=== PATIENT | female | born 2000 | race Caucasian/White ===

== ENCOUNTER 2020-08-24 13:46 | Emergency (ER) | payer OTHER ==
[2020-08-24 14:01] VITALS: BP 124/79; PULSE 96; TEMP 99.4; BMI 21.0
[2020-08-24] MEDS ORDERED: LIDOCAINE 5% TOPICAL PATCH TP ONE (14:19)
[2020-08-24] MEDS ORDERED: LIDOCAINE 5% TOPICAL PATCH ONE (14:35)
[2020-08-24] MEDS ORDERED: LIDOCAINE PATCH REMOVAL MC SCH (22:00)
== END 2020-08-24 14:59 | disposition home or self-care (01) ==
LOC: FER 13:46
DX: S13.4XXA Sprain of ligaments of cervical spine, initial encounter (principal); G44.209 Tension-type headache, unspecified, not intractable
CPT/HCPCS: 99284-25